=== PATIENT | female | born 1990 ===

== ENCOUNTER 2017-12-07 12:01 | Emergency (ER) | payer SELFPAY ==
[2017-12-07 12:32] VITALS: O2SAT 100
[2017-12-07 12:34] VITALS: BMI 23.2
[2017-12-07 12:35] VITALS: PULSE 81; TEMP 98
--- NOTE | 2017-12-07 13:16 | ED PDOC ---
HPI: Abdomen Time Seen by Provider: 12/07/17 13:15 Chief Complaint (Nursing): Abdominal Pain Chief Complaint (Provider): abd pain History Per: Patient, Family (Family member at bedside is translating for patient in Portuguese) Additional Complaint(s): 27-year-old female with history of known gallstones presents to emergency department with right upper quadrant pain, nausea and vomiting that started last night. Patient denies any fever or chills. She states she has been unable to keep down any liquids or solids. Patient lives in [facility] and is here visiting family. PMD: none Past Medical History Reviewed: Historical Data, Nursing Documentation, Vital Signs Vital Signs: Last Vital Signs Temp 98 F 12/07/17 12:34 Pulse 81 12/07/17 12:34 Resp 18 12/07/17 12:34 BP 114/68 12/07/17 12:34 Pulse Ox 100 12/07/17 14:39 - Medical History PMH: No Chronic Diseases - Surgical History Surgical History: Appendectomy - Family History Family History: States: No Known Family Hx - Living Arrangements Living Arrangements: With Family - Social History Current smoker - smoking cessation education provided: No Alcohol: None Drugs: Denies - Home Medications Home Medications: Ambulatory Orders Medication Instructions Recorded Acetaminophen [Tylenol 325mg tab] 650 mg PO Q4 PRN #1 bottle 12/07/17 - Allergies Allergies/Adverse Reactions: Allergies Allergy/AdvReac Type Severity Reaction Status Date / Time buspirone Allergy RASH Verified 12/07/17 12:34 cinnamon Allergy ANAPHYLAXIS Verified 12/07/17 12:34 diclofenac Allergy RASH Verified 12/07/17 12:34 ibuprofen Allergy RASH Verified 12/07/17 12:31 metoclopramide Allergy RASH Verified 12/07/17 12:34 naproxen Allergy RASH Verified 12/07/17 12:28 ondansetron Allergy RASH Verified 12/07/17 12:34 pineapple Allergy ANAPHYLAXIS Verified 12/07/17 12:34 Review of Systems ROS Statement: Except As Marked, All Systems Reviewed And Found Negative Constitutional: Negative for: Fever, Chills Cardiovascular: Negative for: Chest Pain Respiratory: Negative for: Cough Gastrointestinal: Positive for: Nausea, Abdominal Pain. Negative for: Diarrhea Genitourinary Female: Negative for: Dysuria, Vaginal Discharge, Vaginal Bleeding Physical Exam - Reviewed Nursing Documentation Reviewed: Yes Vital Signs Reviewed: Yes - Physical Exam Appears: Positive for: Well, Non-toxic, No Acute Distress Skin: Negative for: Rash Eye Exam: Positive for: Normal appearance Cardiovascular/Chest: Positive for: Regular Rate, Rhythm Respiratory: Positive for: Normal Breath Sounds Gastrointestinal/Abdominal: Positive for: Soft, Tenderness (RUQ). Negative for : Distended, Guarding, Rebound Back: Negative for: L CVA Tenderness, R CVA Tenderness Extremity: Positive for: Normal ROM Neurologic/Psych: Positive for: Alert, Oriented - Laboratory Results Result Diagrams: 12/07/17 14:20 12/07/17 14:20 Urine POC: Negative Urine dip results: Negative for: Leukocyte Esterase, Blood, Nitrate, Ketones, Glucose, Bilirubin, Protein - ECG O2 Sat by Pulse Oximetry: 100 Pulse Ox Interpretation: Normal - Other Rad GB US X-Ray: Read By Radiologist X-Ray Interpretation: gallstones, no cholecystitis Medical Decision Making Medical Decision Makin-year-old female with history of gallstones presents with abdominal pain, nausea and vomiting Plan: CBC CMP Lipase IVF IV pepcid - patient states pepcid usually helps with nausea. She is allergic to reglan and zofran. PO tylenol Patient is aware of diagnostic testing results, all questions answered. Patient was referred to clinic for follow-up. She was given dietary instructions and rx tylenol. Disposition - Clinical Impression Clinical Impression: Gallstones Counseled Patient/Family Regarding: Studies Performed, Diagnosis, Need For Followup, Rx Given - Disposition Referrals: [facility] [Outside] Disposition: Routine/Home Disposition Time: 17:29 Condition: STABLE Additional Instructions: Take prescription medication as directed as needed for pain. Follow-up with clinic for further evaluation. Prescriptions: Acetaminophen [Tylenol 325mg tab] 650 mg PO Q4 PRN #1 bottle PRN Reason: Fever >100.4 F Instructions: Gallstones (DC), Low Cholesterol, Saturated Fat, and Trans Fat Diet Forms: [facility] (Portuguese) Print Language: UKRAINIAN Results - Lab Results Lab Results: 12/07/17 12/07/17 14:20 14:20 WBC 8.6 RBC 4.25 Hgb 12.8 Hct 38.9 MCV 91.7 MCH 30.2 MCHC 33.0 RDW 13.7 Plt Count 296 MPV 9.2 Neut % (Auto) 72.5 Lymph % (Auto) 20.2 [place] % (Auto) 5.3 Eos % (Auto) 1.5 Baso % (Auto) 0.5 Neut # (Auto) 6.2 Lymph # (Auto) 1.7 [place] # (Auto) 0.5 Eos # (Auto) 0.1 Baso # (Auto) 0.0 Sodium 143 Potassium 4.4 Chloride 106 Carbon Dioxide 25 Anion Gap 16 BUN 13 Creatinine 0.5 L Est GFR ( Amer) > 60 Est GFR (Non-Af Amer) > 60 Random Glucose 100 Calcium 9.3 Total Bilirubin 0.3 AST 31 ALT 34 Alkaline Phosphatase 52 Total Protein 7.4 Albumin 4.1 Globulin 3.3 Albumin/Globulin Ratio 1.2 Lipase 119
[2017-12-07] MEDS ORDERED: Sodium Chloride 0.9% 1,000 ML IV STA (13:37)
[2017-12-07 14:40] LABS: BASO % 0.5 % (0.0-2.0); EOS # 0.1 K/uL (0.0-0.7); EOS % 1.5 % (0.0-4.0); HEMOGLOBIN 12.8 g/dL (12.0-16.0); LYMPH # 1.7 K/uL (1.0-4.3); LYMPH % 20.2 % (20.0-40.0); MEAN CELL VOLUME 91.7 fl (81.0-99.0); MEAN CORPUSCULAR HEMOGLOBIN 30.2 pg (27.0-31.0); MEAN PLATELET VOLUME 9.2 fl (7.2-11.7); MONO # 0.5 K/uL (0.0-0.8); MONO % 5.3 % (0.0-10.0); NEUT # 6.2 K/uL (1.8-7.0); NEUT % 72.5 % (50.0-75.0); RBC 4.25 Mil/uL (3.80-5.20); RED CELL DISTRIBUTION WIDTH 13.7 % (11.5-14.5); WHITE BLOOD COUNT 8.6 K/uL (4.8-10.8)
[2017-12-07 14:46] LABS: ALB/GLOB RATIO 1.2 (1.0-2.1); ALBUMIN 4.1 g/dL (3.5-5.0); ALT/SGPT 34 U/L (9-52); AST/SGOT 31 U/L (14-36); BLOOD UREA NITROGEN 13 mg/dl (7-17); CALCIUM 9.3 mg/dL (8.4-10.2); GFR AFRICAN-AMERICAN > 60; GFR NON-AFRICAN AMERICAN > 60; LIPASE 119 U/L (23-300)
--- NOTE | 2017-12-07 17:16 | US ---
HISTORY: RUQ pain, h/o stones COMPARISON: None. TECHNIQUE: Sonographic evaluation of the right upper quadrant of the abdomen. FINDINGS: LIVER: Measures 14.5 cm in length. Normal echogenicity of the liver parenchyma. No mass. No intrahepatic bile duct dilatation. GALLBLADDER: Gallstones are noted. No evidence of significant gallbladder wall thickening or pericholecystic fluid. COMMON BILE DUCT: Measures 3 mm. No stones. No dilatation. PANCREAS: Unremarkable as visualized. No mass. No ductal dilatation. RIGHT KIDNEY: Measures 12.6 x 4.8 x 3.8 cm in length. Normal echogenicity. No calculus, mass, or hydronephrosis. AORTA: No aneurysmal dilatation. IVC: Unremarkable. OTHER FINDINGS: None . IMPRESSION: Gallstones without ultrasound evidence of acute cholecystitis.
[2017-12-07 18:12] VITALS: BP 116/67; RESP 14
== END 2017-12-07 18:11 | disposition home or self-care (01) ==
LOC: H.ER 12:01
DX: K80.20 Calculus of gallbladder without cholecystitis without obstruction (principal)
CPT/HCPCS: 76705; 80053; 81025; 83690; 85025; 96361; 96374; 99284; J7040